=== PATIENT | male | born 1940 | race Caucasian/White ===

== ENCOUNTER 2020-09-27 09:53 | Day surgery (SDC) | payer MEDICARE, BC ==
[~2020-09-27] VITALS: Ht 177.8 cm; Wt 90.9 kg
[2020-09-27 11:07] VITALS: BP 134/75; PULSE 56; TEMP 97.7
[2020-09-27] MEDS ORDERED: PRILOSEC 20MG20 MG PO (11:20)
[2020-09-27] MEDS ORDERED: ELIQUIS 5MG PO (11:21)
[2020-09-27] MEDS ORDERED: LEVOXYL0.112 MG PO (11:21)
[2020-09-27] MEDS ORDERED: ATIVAN 0.50.5 MG/TAB PO (11:22)
[2020-09-27] MEDS ORDERED: LOPRESSOR 225 MG/TAB PO (11:23)
[2020-09-27] MEDS ORDERED: NITRO-DUR0.4 MG/PAT TD (11:23)
[2020-09-27 13:25] VITALS: BP 124/68; PULSE 56
--- NOTE | 2020-09-27 13:25 | NUR ---
Pt to [facility] via cart from [employer]. Pt awake and alert. Pt ambulates to recliner with stand by assistance. Warm blanket provided. Water and applesauce given per pt request. Call light within reach.
[2020-09-27 13:40] VITALS: BP 134/73; PULSE 52
--- NOTE | 2020-09-27 13:40 | NUR ---
Pt continues to rest. Denies needs. Call light within reach.
[2020-09-27 13:55] VITALS: BP 137/74; PULSE 50
--- NOTE | 2020-09-27 13:55 | NUR ---
Discharge instructions reviewed. Pt voices understanding. IV site discontinued with all parts intact. Pt up to dress. Call light within reach.
--- NOTE | 2020-09-27 14:10 | NUR ---
Pt escorted to private car via wheel chair. Pt accompanied home by his friend Ralph.
== END 2020-09-27 14:10 | disposition home or self-care (01) ==
LOC: SDCO 09:53
DX: K29.51 Unspecified chronic gastritis with bleeding (principal); K29.80 Duodenitis without bleeding; K21.00 Gastro-esophageal reflux disease with esophagitis, without bleeding; K44.9 Diaphragmatic hernia without obstruction or gangrene; I10 Essential (primary) hypertension; I25.2 Old myocardial infarction; I25.10 Atherosclerotic heart disease of native coronary artery without angina pectoris; I48.0 Paroxysmal atrial fibrillation; E78.5 Hyperlipidemia, unspecified; E03.9 Hypothyroidism, unspecified; G89.29 Other chronic pain; E53.8 Deficiency of other specified B group vitamins; F32.9 Major depressive disorder, single episode, unspecified; F41.9 Anxiety disorder, unspecified; Z20.822 Contact with and (suspected) exposure to COVID-19; Z79.899 Other long term (current) drug therapy; Z79.890 Hormone replacement therapy; Z88.8 Allergy status to other drugs, medicaments and biological substances; Z88.1 Allergy status to other antibiotic agents; Z95.5 Presence of coronary angioplasty implant and graft; Z79.01 Long term (current) use of anticoagulants; Z82.3 Family history of stroke
CPT/HCPCS: J2704; J7030